=== PATIENT | female | born 1990 | race Caucasian/White ===

== ENCOUNTER → 2019-01-10 | Outpatient (CLI) | payer OTHER ==
[2019-01-10 16:54] LABS: Albumin 4.2 g/dL (3.80-4.90); Albumin/Globulin Ratio 1.5 (1.60-3.17); Anion Gap 7.2 mmol/L (4.00-12.00); Calcium 9.5 mg/dL (8.7-10.3); Carbon Dioxide 27.8 mmol/L (21.6-31.8); Globulin 2.8 g/dL (1.6-3.3); Potassium 4.8 mmol/L (3.5-5.5); Total Bilirubin 0.5 mg/dL (0.3-1.2)
[2019-01-10 17:02] LABS: T4, Free (Free Thyroxine) 1.2 ng/dL (0.80-1.80)
[2019-01-10 17:30] LABS: C-Peptide 3.07 ng/mL (0.81-3.85)
[2019-01-10 20:29] LABS: Hemoglobin A1C 5.4 % (4.0-6.0)
== END | disposition home or self-care (01) ==
LOC: LABWHC1 10:27
PROVIDERS: ATTEND Family Medicine
DX: Z00.00 Encounter for general adult medical examination without abnormal findings (principal); E55.9 Vitamin D deficiency, unspecified; Z13.1 Encounter for screening for diabetes mellitus
CPT/HCPCS: 36415; 80053; 83036; 84439; 84443; 84481; 84681; 86376; 86800

== ENCOUNTER → 2019-01-15 | Outpatient (CLI) | payer OTHER ==
[2019-01-15 11:54] LABS: LDL Cholesterol,Calculated 143.2 mg/dL (0.0-131.0); VLDL Calculation 21.8 mg/dL (5.00-40.00)
== END | disposition home or self-care (01) ==
LOC: LABWHC1 06:54
PROVIDERS: ATTEND Family Medicine
DX: Z00.00 Encounter for general adult medical examination without abnormal findings (principal); E55.9 Vitamin D deficiency, unspecified; Z13.1 Encounter for screening for diabetes mellitus
CPT/HCPCS: 36415; 80061

== ENCOUNTER 2020-03-24 16:26 | Observation (INO) | payer OTHER ==
--- NOTE | 2020-03-24 16:33 | ED ---
Chest Pain HPI - General Chief Complaint: Chest Pain Stated Complaint: Chest Pain Time Seen by Provider: 03/24/20 16:32 Source: patient, RN notes reviewed, old records reviewed Mode of arrival: ambulatory Limitations: no limitations - History of Present Illness Initial Comments: This is a 29-year-old female DF for evaluation patient Dese for evaluation regards to chest pain left-sided left-sided chest pain radiating to back epidural outpatient. Chest. No prior history of similar complaint patient was diaphoretic able to amply but he felt like she needed to catch her breath. No history of similar complaints has no medical history aside for PCO S she does take metformin per prediabetes. No travel history or sick contacts no prior similar complaints symptoms having 1 hour today MD Complaint: chest pain -: hour(s) Onset: during rest Pain Location: left chest Pain Radiation: back Severity: moderate Severity scale (1-10): 6 Quality: sharp Consistency: constant, now resolved Improves With: nothing Anginal Symptoms: diaphoresis, dyspnea Other Symptoms: other (Anxiety) Treatments Prior to Arrival: none - Related Data Home Medications Medication Instructions Recorded Confirmed metFORMIN HCL [metFORMIN HCL ER] 500 mg PO W/SUPPER 03/24/20 03/24/20 Previous Rx's Medication Instructions Recorded Atorvastatin Calcium [Lipitor] 20 mg PO HS #30 tab 03/25/20 Allergies Allergy/AdvReac Type Severity Reaction Status Date / Time No Known Allergies Allergy Verified 03/24/20 18:37 Review of Systems ROS Statement: Those systems with pertinent positive or pertinent negative responses have been documented in the HPI. ROS Other: All systems not noted in ROS Statement are negative. EKG Findings - EKG Comments: EKG Findings:: EKG is sinus rhythm 100, NE 168 QRS 78 QTc 446 Past Medical History Additional Past Medical History / Comment(s): polycystic ovarion syndrome History of Any Multi-Drug Resistant Organisms: None Reported Past Surgical History: No Surgical Hx Reported Past Psychological History: No Psychological Hx Reported Smoking Status: Never smoker Past Alcohol Use History: None Reported Past Drug Use History: None Reported - Past Family History Father History Unknown: Yes Family Medical History: Diabetes Mellitus, Hypertension Mother History Unknown: Yes Family Medical History: Diabetes Mellitus, Thyroid Disorder General Exam Limitations: no limitations General appearance: alert, in no apparent distress Head exam: Present: atraumatic, normocephalic, normal inspection Eye exam: Present: normal appearance, PERRL, EOMI. Absent: scleral icterus, conjunctival injection, periorbital swelling ENT exam: Present: normal exam, mucous membranes moist Neck exam: Present: normal inspection. Absent: tenderness, meningismus, lymphadenopathy Respiratory exam: Present: normal lung sounds bilaterally. Absent: respiratory distress, wheezes, rales, rhonchi, stridor Cardiovascular Exam: Present: normal rhythm, tachycardia, normal heart sounds. Absent: systolic murmur, diastolic murmur, rubs, gallop, clicks GI/Abdominal exam: Present: soft, normal bowel sounds. Absent: distended, tenderness, guarding, rebound, rigid Extremities exam: Present: normal inspection, full ROM, normal capillary refill. Absent: tenderness, pedal edema, joint swelling, calf tenderness Back exam: Present: normal inspection Neurological exam: Present: alert, oriented X3, CN II-XII intact Psychiatric exam: Present: normal affect, normal mood Skin exam: Present: warm, dry, intact, normal color. Absent: rash Course Vital Signs 03/24/20 03/24/20 03/24/20 16:27 18:26 18:30 Temperature 99 F Pulse Rate 102 H 72 Respiratory 18 18 Rate Blood Pressure 136/94 134/73 O2 Sat by Pulse 97 100 97 Oximetry - Reevaluation(s) Reevaluation #1: 03/24/20 17:06 Medical records reviewed Patient still persistent chest pain here in the ER Reevaluation #2: Studies Chest x-ray is negative for acute disease CT chest negative for acute disease - Consultations Consultation #1: Spoke with RASHEEDA caraballo for observation Chest Pain MDM - MDM 29 female DF for eval should've chest pain history of PCO S with prediabetes left-sided chest pain rated her back CT chest is negative for acute disease patient does have a mild troponin leak, #90 will admit for cardiology to evaluate Disposition Clinical Impression: Atypical chest pain, Chest pain Disposition: ADMITTED IP TO THIS HOSP Condition: Undetermined Is patient prescribed a controlled substance at d/c from ED?: No
[2020-03-24] MEDS ORDERED: SODIUM CHLORIDE 0.9% 1,000 ML IV STA (17:05)
--- NOTE | 2020-03-24 17:06 | XR ---
EXAMINATION TYPE: XR chest 2V DATE OF EXAM: 03/24/2020 COMPARISON: NONE HISTORY: Chest pain TECHNIQUE: 2 views FINDINGS: Heart and mediastinum are normal. Lungs are clear. Diaphragm is normal. Bony thorax appears normal. IMPRESSION: Normal chest. Normal heart.
[2020-03-24 17:43] LABS: Basophils # (A) 0.1 k/uL (0-0.2); Basophils % (A) 0 %; Eosinophils # (A) 0.2 k/uL (0-0.7); Eosinophils % (A) 1 %; HCT 45.1 % (34.0-46.0); HGB 14.3 gm/dL (11.4-16.0); Lymphocytes # (A) 1.9 k/uL (1.0-4.8); Lymphocytes % (A) 11 %; MCH 27.6 pg (25.0-35.0); MCHC 31.7 g/dL (31.0-37.0); MCV 87.1 fL (80.0-100.0); Mean Platelet Volume 9.6; Monocytes # (A) 0.5 k/uL (0-1.0); Monocytes % (A) 3 %; Neutrophils # (A) 13.7 k/uL (1.3-7.7); Neutrophils % (A) 83 %; Platelet Count 266 k/uL (150-450); RBC 5.17 m/uL (3.80-5.40); WBC 16.6 k/uL (3.8-10.6)
[2020-03-24 17:53] LABS: Albumin 4.4 g/dL (3.5-5.0); Calcium 9.6 mg/dL (8.4-10.2); Magnesium 1.8 mg/dL (1.6-2.3); Total Bilirubin 0.7 mg/dL (0.2-1.3)
[2020-03-24] MEDS ORDERED: MORPHINE SULFATE 4 MG/ML SYRINGE IV PRN (18:30)
[2020-03-24] MEDS ORDERED: ASPIRIN 81 MG PO STA (18:30)
[2020-03-24] MEDS: SODIUM CHLORIDE 0.9% 1,000 ML IV SCH (18:39)
--- NOTE | 2020-03-24 18:59 | CT ---
EXAMINATION TYPE: CT angio chest DATE OF EXAM: 03/24/2020 COMPARISON: None HISTORY: Chest pain starting today. CT DLP: 1003.9 mGycm Automated exposure control for dose reduction was used. CONTRAST: Performed with IV Contrast, patient injected with 71ml mL of Isovue 370. There are 3-D post processed images. The lungs are clear of infiltrate. There is no pleural effusion. There is no pericardial effusion. Up per abdominal soft tissues are intact. Heart size is fairly normal. There is no mediastinal adenopathy. There are no hilar masses. There is normal contrast opacification of the pulmonary arteries. There are no filling defects. Thoracic aorta is intact. There is no aneur ysm or dissection. IMPRESSION: Negative exam. No evidence of pulmonary embolism.
[2020-03-24] MEDS ORDERED: METOPROLOL TARTRATE 25 MG TAB PO SCH (21:00)
[2020-03-25 04:44] LABS: Cholesterol 238 mg/dL (<200); HDL Cholesterol 47 mg/dL (40-60); LDL Cholesterol,Calculated 147 mg/dL (0-99); Triglycerides 218 mg/dL (<150)
[2020-03-25] MEDS: SODIUM CHLORIDE 0.9% 1,000 ML IV SCH (06:32)
[2020-03-25 08:50] VITALS: BP 125/82; PULSE 102; RESP 16; TEMP 98.1
[2020-03-25] MEDS ORDERED: ATORVASTATIN 80 MG TAB PO SCH (09:00)
[2020-03-25] MEDS ORDERED: ASPIRIN 325 MG TAB PO SCH (09:00)
--- NOTE | 2020-03-25 10:31 | P.CRDCN ---
History of Present Illness Consult date: 03/25/20 Chief complaint: Chest discomfort History of present illness: This is a pleasant 29-year-old female patient with history of obesity presented to the hospital complaining of chest discomfort. The patient was in her usual state of health yesterday when she started experiencing discomfort in the chest. She described the discomfort mainly over the mid and left side of the chest without any radiation to the arms or neck or shoulders or jaw. No associated symptoms of shortness of breath or sweating or dizziness or syncope. The EKG showed sinus rhythm was sinus tachycardia. The cardiac enzymes were checked and came in to be unremarkable. The d-dimer came in to be abnormal and subsequently the patient underwent a CTA of the chest which came in to be unremarkable. No prior history of coronary artery disease and the patient does not have any risk factors like diabetes or hypertension or dyslipidemia. The patient does not smoke. No immediate family member was coronary artery disease. At this point, I am going to obtain a stress test and also an echocardiogram and follow-up with the patient. Past Medical History Additional Past Medical History / Comment(s): polycystic ovarion syndrome History of Any Multi-Drug Resistant Organisms: None Reported Past Surgical History: No Surgical Hx Reported Past Anesthesia/Blood Transfusion Reactions: No Reported Reaction Past Psychological History: No Psychological Hx Reported Smoking Status: Never smoker Past Alcohol Use History: None Reported Past Drug Use History: None Reported - Past Family History Father History Unknown: Yes Family Medical History: Diabetes Mellitus, Hypertension Mother History Unknown: Yes Family Medical History: Diabetes Mellitus, Thyroid Disorder Medications and Allergies Home Medications Medication Instructions Recorded Confirmed Type metFORMIN HCL [metFORMIN HCL ER] 500 mg PO W/SUPPER 03/24/20 03/24/20 History Allergies Allergy/AdvReac Type Severity Reaction Status Date / Time No Known Allergies Allergy Verified 03/24/20 18:37 Physical Exam Vitals: Vital Signs Temp Pulse Pulse Resp BP BP Pulse Ox 03/25/20 08:47 98.1 F 102 H 16 125/82 100 03/25/20 03:00 98.0 F 82 18 134/89 99 03/24/20 21:00 87 18 03/24/20 20:51 98.5 F 87 18 111/73 97 03/24/20 20:18 98.5 F 87 18 97 03/24/20 18:30 97 08/20/20 18:26 72 18 134/73 100 03/24/20 16:27 99 F 102 H 18 136/94 97 Intake and Output 03/24/20 03/25/20 03/25/20 22:59 06:59 14:59 Intake Total 100 100 100 Balance 100 100 100 Intake: IV 100 100 100 Invasive Line 2 100 100 100 Other: # Voids 1 2 Weight 131.542 kg - Constitutional General appearance: no acute distress - Respiratory Respiratory: bilateral: CTA - Cardiovascular Rhythm: regular Heart sounds: normal: S1, S2 Results 03/24/20 17:29 03/24/20 17:29 Cardiac Enzymes 03/24/20 03/24/20 03/24/20 Range/Units 17:29 17:29 20:05 AST 58 H (14-36) U/L Troponin I 0.017 <0.012 (0.000-0.034) ng/mL 03/25/20 Range/Units 00:08 AST (14-36) U/L Troponin I <0.012 (0.000-0.034) ng/mL Lipids 03/24/20 Range/Units 17:29 Triglycerides 218 H (<150) mg/dL Cholesterol 238 H (<200) mg/dL HDL Cholesterol 47 (40-60) mg/dL CBC 03/24/20 Range/Units 17:29 WBC 16.6 H (3.8-10.6) k/uL RBC 5.17 (3.80-5.40) m/uL Hgb 14.3 (11.4-16.0) gm/dL Hct 45.1 (34.0-46.0) % Plt Count 266 (150-450) k/uL Comprehensive Metabolic Panel 03/24/20 Range/Units 17:29 Sodium 136 L (137-145) mmol/L Potassium 5.0 (3.5-5.1) mmol/L Chloride 104 (98-107) mmol/L Carbon Dioxide 23 (22-30) mmol/L BUN 15 (7-17) mg/dL Creatinine 1.16 H (0.52-1.04) mg/dL Glucose 97 (74-99) mg/dL Calcium 9.6 (8.4-10.2) mg/dL AST 58 H (14-36) U/L ALT 28 (4-34) U/L Alkaline Phosphatase 98 (38-126) U/L Total Protein 8.0 (6.3-8.2) g/dL Albumin 4.4 (3.5-5.0) g/dL Current Medications Generic Name Dose Route Start Last Admin Trade Name Freq PRN Reason Stop Dose Admin Aspirin 325 mg 03/25/20 09:00 Aspirin PO DAILY [facility] Atorvastatin Calcium 80 mg 03/25/20 09:00 Lipitor PO DAILY [facility] Sodium Chloride 1,000 mls @ 100 mls/hr 03/24/20 18:30 03/25/20 06:32 Saline 0.9% IV 100 mls/hr .Q10H [facility] Administration Metoprolol Tartrate 25 mg 03/24/20 21:00 03/24/20 21:12 Lopressor PO Not Given BID [facility] Morphine Sulfate 4 mg 03/24/20 18:30 Morphine Sulfate (Inj) IV Q4HR PRN Chest Pain Intake and Output 03/24/20 03/25/20 03/25/20 22:59 06:59 14:59 Intake Total 100 100 100 Balance 100 100 100 Intake: IV 100 100 100 Invasive Line 2 100 100 100 Other: # Voids 1 2 Weight 131.542 kg 03/24/20 17:29 03/24/20 17:29 Assessment and Plan Assessment: Assessment #1 atypical chest discomfort Plan #1 acute coronary event was ruled out #2 I will obtain a stress test #3 follow-up with the patient
--- NOTE | 2020-03-25 14:06 | EST ---
EXERCISE STRESS DATE OF SERVICE: March 25, 2020. AGE: 29 SEX: Fe HT: 62" WT: 290 lbs PROTOCOL: Stress Echo STAGE: 3 DURATION OF EXERCISE: 7:15 minutes HEART RATE REST: 100 BLOOD PRESSURE REST: 127/96 MAXIMUM HEART RATE ACHIEVED: 168 MAXIMUM BLOOD PRESSURE: 161/96 85% MPHR: 161 100% MPHR: 189 METS: 8.7 INDICATIONS: Chest pain. STRESS DATA: Heart rate 100, pressure is 127/96 mmHg. Baseline EKG showed sinus mechanism. The patient exercised on the treadmill according to [employer] protocol for a total of 7 minutes and 15 seconds and achieved 8.7 METS. Max heart rate was 168, which is about 86% of maximum predicted heart rate. Maximum blood pressure was 161/96 mmHg. Clinically, the patient did not have any symptoms of chest pain or discomfort and the EKG did not show any significant ST or T-wave abnormalities concerning for ischemia. ECHOCARDIOGRAM IMAGES: On echocardiogram images from parasternal long axis view, parasternal short axis view, apical 4 chamber and apical 2 chamber were obtained at the baseline images, at the peak of the heart rate as well on recovery and the echo showed good augmentation in the left ventricular systolic function without any evidence of wall motion abnormalities concerning for ischemia. CONCLUSION: 1. Good exercise tolerance. 2. Normal EKG in response to exercise. 3. Normal echocardiogram in response to exercise. 4. Essentially normal stress echo. MMODL / IJN: [id number] /
--- NOTE | 2020-03-25 15:37 | P.HPIM ---
History of Present Illness H&P Date: 03/25/20 Chief Complaint: Chest pain History and Physical and Discharge Summary This is a 29-year-old female presented to the ER with complaints of chest pain. Patient had been at work yesterday sitting at [employer], developed sharp left chest pain just beneath the clavicle that radiated around posteriorly into the back approximately 2 hours after consuming [employer] for lunch. Reports chest pain was accompanied by diaphoresis and nausea, lasting for approximately 30 minutes. Denied shortness of breath. Attempted ambulating and drinking cold water with no relief. Reports occasional heartburn.Family history of CAD -Reports father has hypertension and both grandfathers have required CABGs in their 60s and 70s. Denies syncope, lightheadedness dizziness or focal deficits. Denies emesis or abdominal pain. EKG reported normal sinus rhythm, mild sinus tachycardia with heart rate of 100. Troponins negative 3. Triglycerides 218, cholesterol 238, LDL 147. Patient has been initiated on a statin. Chest x-ray reported normal. Chest CTA no evidence of PE, normal exam. Evaluated by cardiology and scheduled for a stress echo. T-max 99, WBC 16.6, sodium 137, potassium 5, BUN, creatinine 1.16. Vital signs stable, maintaining O2 sats in the 90s on room air. Review of Systems ROS Statement: Those systems with pertinent positive or pertinent negative responses have been documented in the HPI. ROS Other: All systems not noted in ROS Statement are negative. Past Medical History Additional Past Medical History / Comment(s): polycystic ovarion syndrome History of Any Multi-Drug Resistant Organisms: None Reported Past Surgical History: No Surgical Hx Reported Past Anesthesia/Blood Transfusion Reactions: No Reported Reaction Past Psychological History: No Psychological Hx Reported Smoking Status: Never smoker Past Alcohol Use History: None Reported Past Drug Use History: None Reported - Past Family History Father History Unknown: Yes Family Medical History: Diabetes Mellitus, Hypertension Mother History Unknown: Yes Family Medical History: Diabetes Mellitus, Thyroid Disorder Medications and Allergies Home Medications Medication Instructions Recorded Confirmed Type metFORMIN HCL [metFORMIN HCL ER] 500 mg PO W/SUPPER 03/24/20 03/24/20 History Atorvastatin Calcium [Lipitor] 20 mg PO HS #30 tab 03/25/20 Rx Allergies Allergy/AdvReac Type Severity Reaction Status Date / Time No Known Allergies Allergy Verified 03/24/20 18:37 Physical Exam Vitals: Vital Signs Temp Pulse Pulse Resp BP BP Pulse Ox 03/25/20 08:47 98.1 F 102 H 16 125/82 100 03/25/20 03:00 98.0 F 82 18 134/89 99 03/24/20 21:00 87 18 03/24/20 20:51 98.5 F 87 18 111/73 97 03/24/20 20:18 98.5 F 87 18 97 03/24/20 18:30 97 03/24/20 18:26 72 18 134/73 100 03/24/20 16:27 99 F 102 H 18 136/94 97 Intake and Output 03/24/20 03/25/20 03/25/20 22:59 06:59 14:59 Intake Total 100 100 100 Balance 100 100 100 Intake: IV 100 100 100 Invasive Line 2 100 100 100 Other: # Voids 1 2 Weight 131.542 kg PHYSICAL EXAM: VITAL SIGNS: As above GENERAL: Sitting up in bed, no acute distress HEENT: Conjunctivae normal. eyes normal. NECK: No JVD. No thyroid enlargement. No LNs CARDIOVASCULAR: S1, S2 regular.. No murmur RESPIRATION: Breath sounds diminished in the bases. No rhonchi or crackles. No bronchial breathing. ABDOMEN: Soft, obese, nontender . No guarding. no masses palpable. No ascites, No hepatosplenomegaly.Bowel sounds heard. LEGS: No edema. no swelling PSYCHIATRY: Alert and oriented X3, mood and affect normal. NERVOUS SYSTEM: Cranial N 2-12 grossly normal. Moves all 4 limbs. No focal deficits. Strength and sensation grossly intact.. Skin: Warm and dry ,no rash Results CBC & Chem 7: 03/24/20 17:29 03/24/20 17:29 Labs: Abnormal Lab Results - Last 24 Hours (Table) 03/24/20 03/24/20 03/24/20 Range/Units 17:29 17:29 17:29 WBC 16.6 H (3.8-10.6) k/uL Neutrophils # 13.7 H (1.3-7.7) k/uL Sodium 136 L (137-145) mmol/L Creatinine 1.16 H (0.52-1.04) mg/dL AST 58 H (14-36) U/L Triglycerides 218 H (<150) mg/dL Cholesterol 238 H (<200) mg/dL LDL Cholesterol, Calc 147 H (0-99) mg/dL Thrombosis Risk Factor Assmnt - Choose All That Apply Any of the Below Risk Factors Present?: Yes Each Factor Represents 1 point: Obesity (BMI >25) Other congenital or acquired thrombophilia - If yes, enter type in comment: No Thrombosis Risk Factor Assessment Total Risk Factor Score: 1 Thrombosis Risk Factor Assessment Level: Low Risk Assessment and Plan Assessment: Atypical chest pain, acute coronary event ruled out as per cardiology. Possible gastroesophageal reflux disease. Family history of CAD Hyperlipidemia Hypercholesterolemia Morbid Obesity, BMI 53 Plan: Continue on current medication regime ,monitoring and symptomatic treatment. Evaluated by cardiology, scheduled for stress echo. Patient will be discharged home today pending negative stress echo, cardiology clearance and final DC recommendations, in a stable condition with guarded prognosis. Further workup outpatient with PCP regarding potential gastroesophageal reflux disease, weight loss. The impression and plan of care has been dictated as directed. : I performed a history and examination of this patient, discussed the same with the dictator. I agree with the dictator's note ,documented as a scribe. Any additional findings or plans will be noted.
--- NOTE | 2020-03-25 18:33 | ECHOF ---
Referral Reason:cp MEASUREMENTS -------- HEIGHT: 157.5 cm WEIGHT: 131.5 kg BP: 134/89 RVIDd: 3.4 cm (< 3.3) IVSd: 1.5 cm (0.6 - 1.1) LVIDd: 3.9 cm (3.9 - 5.3) LVPWd: 1.5 cm (0.6 - 1.1) IVSs: 1.6 cm LVIDs: 2.2 cm LVPWs: 1.6 cm LAESV Index (A-L): 21.16 ml/m Ao Diam: 3.0 cm (2.0 - 3.7) AV Cusp: 2.1 cm (1.5 - 2.6) MV EXCURSION: 15.135 mm (> 18.000) MV EF SLOPE: 35 mm/s (70 - 150) EPSS: 0.6 cm MV E Santosh: 1.25 m/s MV DecT: 143 ms MV A Santosh: 0.81 m/s MV E/A Ratio: 1.54 RAP: 5.00 mmHg RVSP: 23.89 mmHg FINDINGS -------- Sinus rhythm. This was a technically adequate study. The left ventricular size is normal. There is moderate concentric left ventricular hypertrophy. O verall left ventricular systolic function is normal with, an EF between 55 - 60 %. The diastolic fi lling pattern is normal for the age of the patient 18.30. The right ventricle is mildly enlarged. Normal LA size by volume 22+/-6 ml/m2. The right atrial size is normal. Interatrial and interventricular septum intact. The aortic valve is trileaflet and appears structurally normal. There is no evidence of aortic regu rgitation. There is no evidence of aortic stenosis. There is trace to mild mitral regurgitation. Trace tricuspid regurgitation present. There is no evidence of pulmonary hypertension. The right ventricular systolic pressure, as measured by Doppler, is 23.89mmHg. There is no pulmonic regurgitation present. The aortic root size is normal. The inferior vena cava is mildly dilated. There is no pericardial effusion. CONCLUSIONS -------- 1. The left ventricular size is normal. 2. There is moderate concentric left ventricular hypertrophy. 3. Overall left ventricular systolic function is normal with, an EF between 55 - 60 %. 4. The diastolic filling pattern is normal for the age of the patient 18.30 5. The right ventricle is mildly enlarged. 6. Trace tricuspid regurgitation present. 7. The inferior vena cava is mildly dilated. SYSTEM MANAGER: Kaitlin Vaughan RDCS
== END 2020-03-25 15:38 | disposition home or self-care (01) ==
LOC: EC 16:26 → 3NCARDOBS 18:31
PROVIDERS: ADMIT Family Medicine; ATTEND Family Medicine
DX: R07.89 Other chest pain (principal); R61 Generalized hyperhidrosis; R06.00 Dyspnea, unspecified; R11.0 Nausea; E28.2 Polycystic ovarian syndrome; R73.03 Prediabetes; R00.0 Tachycardia, unspecified; E78.5 Hyperlipidemia, unspecified; E78.00 Pure hypercholesterolemia, unspecified; R79.1 Abnormal coagulation profile; I51.7 Cardiomegaly; E66.01 Morbid (severe) obesity due to excess calories; Z68.43 Body mass index [BMI] 50.0-59.9, adult; Z79.84 Long term (current) use of oral hypoglycemic drugs; Z82.49 Family history of ischemic heart disease and other diseases of the circulatory system; Z83.3 Family history of diabetes mellitus; Z83.49 Family history of other endocrine, nutritional and metabolic diseases
CPT/HCPCS: 93005 ×2; 99285; 36415; 93306; 93351; 83880; 80061; 80053; 83690; 83735; 84484 ×2; 85025; 71046; 71275; G0378 ×2; Q9967